=== PATIENT | male | born 1950 | race Caucasian/White ===

== ENCOUNTER → 2019-05-07 | Outpatient (CLI) | payer MEDICARE, OTHER | END | disposition home or self-care (01) | LOC: PETCFH 09:01 | PROVIDERS: ATTEND Specialist | CPT/HCPCS: 78816; A9552 ×2 ==

== ENCOUNTER 2019-10-20 08:33 | Outpatient (CLI) | payer MEDICARE, OTHER ==
[2019-10-20] MEDS ORDERED: OMNIPAQUE 350 MG/ML, 100ML BOTTLE ONE (13:34)
== END 2019-10-20 23:59 | disposition home or self-care (01) ==
LOC: CFH 08:33
PROVIDERS: ATTEND Specialist
DX: C43.71 Malignant melanoma of right lower limb, including hip (principal); C67.9 Malignant neoplasm of bladder, unspecified; M51.36 Other intervertebral disc degeneration, lumbar region; M41.86 Other forms of scoliosis, lumbar region
CPT/HCPCS: 71260; 74177; Q9967

== ENCOUNTER → 2019-11-26 | Outpatient (CLI) | payer MEDICARE, OTHER ==
[~2019-11-26] MED LIST: GADOTERATE 10 MMOL/20 ML SYR ONE
== END | disposition home or self-care (01) ==
LOC: RAD 06:59
PROVIDERS: ATTEND Specialist
DX: C43.71 Malignant melanoma of right lower limb, including hip (principal); C67.9 Malignant neoplasm of bladder, unspecified
CPT/HCPCS: 70553; A9575

== ENCOUNTER → 2020-01-01 | Outpatient (CLI) | payer MEDICARE, OTHER | END | disposition home or self-care (01) | LOC: PETCFH 09:38 | PROVIDERS: ATTEND Specialist | DX: C43.71 Malignant melanoma of right lower limb, including hip (principal); C67.9 Malignant neoplasm of bladder, unspecified; I25.10 Atherosclerotic heart disease of native coronary artery without angina pectoris | CPT/HCPCS: 78816; A9552 ==